=== PATIENT | female | born 1975 | race Caucasian/White ===

== ENCOUNTER → 2018-01-10 08:47 | Outpatient (CLI) | payer OTHER, SELFPAY ==
--- NOTE | 2018-01-10 | CI_ITS ---
Cerebrovascular Exam IMPRESSIONS 1. The bilateral internal carotid arteries reveal no evidence of plaque or stenosis. 2. The bilateral common and external carotid arteries reveal no significant stenosis. 3. The bilateral vertebral arteries are patent with normal antegrade flow. 4. The bilateral subclavian arteries reveal no evidence of significant stenosis. Carotid duplex study. Complete study and Doppler flow study including spectral analysis, color and bello scale imaging. Height: Height: 157.5cm. Height: 62in. Weight: Weight: 77.6kg. Weight: 170.6lb. Body mass index: BMI: 31.3kg/m^2. Body surface area: BSA: 1.87m^2. Location: Vascular laboratory. Patient status: Outpatient. Findings: Right subclavian: Normal. Left subclavian: Normal. Tables: Arterial flow: + +--------+--------+ Location V sys V ed + +--------+--------+ Right CCA - proximal 101cm/s 37.7cm/s + +--------+--------+ Right ECA 124cm/s 38.5cm/s + +--------+--------+ Right ICA - proximal 65.1cm/s 33.6cm/s + +--------+--------+ Right ICA - mid 77.7cm/s 44.1cm/s + +--------+--------+ Right ICA - distal 86cm/s 48cm/s + +--------+--------+ Right vertebral 43.1cm/s 17cm/s + +--------+--------+ Left CCA - proximal 105cm/s 40.5cm/s + +--------+--------+ Left CCA - distal 113cm/s 47.5cm/s + +--------+--------+ Left ECA 108cm/s 37cm/s + +--------+--------+ Left ICA - proximal 115cm/s 52.4cm/s + +--------+--------+ Left ICA - mid 97.1cm/s 48.2cm/s + +--------+--------+ Left ICA - distal 84.5cm/s 46.1cm/s + +--------+--------+ Left vertebral 54cm/s -26cm/s + +--------+--------+ Velocity ratios: + + + + Left, V sys Left, V ed + + + + Max ICA/dist CCA 1.02 1.1 + + + + (Report amended ) Electronically signed by: Pacheco Houston [id number]
== END ==
PROVIDERS: Family Provider Nurse Practitioner Family; PCP Nurse Practitioner Family; Visit Provider Nurse Practitioner Family
DX: I63.12 Cerebral infarction due to embolism of basilar artery (principal)
CPT/HCPCS: 93880

== ENCOUNTER → 2018-02-25 08:37 | Outpatient (CLI) | payer OTHER, SELFPAY ==
[2018-02-25 13:54] LABS: Basophils % 0.4 % (0.1-2.0); Eosinophils # 0.2 K/mm3 (0.0-0.4); Eosinophils % 2.7 % (0.1-12.0); Hematocrit 42.5 % (37.0-47.0); Hemoglobin 13.7 g/dL (12.2-16.2); Lymphocytes # 2.7 K/mm3 (0.7-4.5); Lymphocytes % 36.4 K/mm3 (10-50); Mean Corpuscular HGB Conc 32.3 g/dL (31.8-35.4); Mean Corpuscular Hemoglobin 30.5 pg (27.0-31.2); Mean Corpuscular Volume 94.6 fl (81-99); Mean Platelet Volume 7.1 fl (7.4-10.4); Monocytes # 0.2 K/mm3 (0.1-1.0); Monocytes % 3.1 % (1.7-9.3); Neutrophils # 4.2 K/mm3 (1.8-7.8); Neutrophils % 57.4 % (37.0-80.0); Platelet Count 410 K/mm3 (142-424); Red Blood Count 4.49 M/mm3 (4.20-5.40); Red Cell Distribution Width 13.3 % (11.5-17.5); White Blood Count 7.3 K/mm3 (4.8-10.8)
[2018-02-25 15:16] LABS: Alanine Aminotransferase 24 U/L (12-78); Albumin Level 3.4 gm/dL (3.4-5.0); Albumin/Globulin Ratio 0.9 (1.1-1.8); Alkaline Phosphatase 79 U/L (46-116); Anion Gap 13.9 mEq/L (5-15); Aspartate Amino Transferase 19 U/L (15-37); Bilirubin,Total 0.1 mg/dL (0.2-1.0); Blood Urea Nitrogen 10 mg/dL (7-18); Carbon Dioxide 26 mmol/L (21.0-32.0); Chloride 105 mmol/L (98-107); Creatinine,Serum 0.86 mg/dL (0.55-1.02); Estimated Glomerular Filt Rate 72 ml/min (>60); GFR (African American) 87 ML/MIN (>60); Globulin 3.8 gm/dl (1.3-3.2); Glucose 105 mg/dL (74-106); Potassium 3.9 mmoL/L (3.5-5.1); Sodium 141 mmol/L (136-145); Thyroid Stimulating Hormone 2.41 uIU/ml (0.358-3.740); Total Protein,Serum 7.2 gm/dL (6.4-8.2)
[2018-02-26 15:56] LABS: Folate 2.9 ng/mL (>3.0); Vitamin B12 388 pg/mL (232-1245)
== END ==
PROVIDERS: PCP Nurse Practitioner Family; Visit Provider Specialist
DX: R51 Headache (principal)
CPT/HCPCS: 36415; 80053; 82607; 82746; 84443; 85025

== ENCOUNTER → 2018-02-26 12:49 | Outpatient (CLI) | payer OTHER, SELFPAY ==
--- NOTE | 2018-02-26 12:50 | MR_ITS ---
MR head/brain wo/w con HISTORY: Severe headache, facial numbness on the right ITS.REASON: migraine,stroke like symptoms ORDERING PHYSICIAN: Jaida Aranda MD PATIENT AGE: 43 years Comparison: None TECHNIQUE: Standard multiplanar multiecho sequences are performed without and with gadolinium enhancement. FINDINGS: No midline shift, mass effect, intracranial hemorrhage, or hydrocephalus. No evidence of acute infarction. No enhancing lesions. There are scattered periventricular and subcortical T2 white matter hyperintensities. These are nonspecific. These may be related to migraine headache. Ischemic gliotic foci would be included in the differential diagnosis. Demyelinating process would be included in the differential diagnosis however this is not have characteristic appearance of that therapy. There are couple small T2 white matter hyperintensities in the carmen on the left. The hippocampal gyri are unremarkable. The temporal horns are symmetric. The cerebellopontine angles, cerebellum, and brainstem are unremarkable Unremarkable pituitary and optic chiasm. The cranial cervical junction and cerebellar tonsils are unremarkable. No sinus air-fluid level or mastoid effusion IMPRESSION: 1. Scattered periventricular and subcortical T2 white matter hyperintensities which could be due to sequela from migraines headache. Ischemic gliotic change from microvascular disease is also occluded although the patient is somewhat younger than the expected degree of these findings. Is there a long-standing hypertension or diabetes? Demyelinating process cannot totally be excluded. 2. No evidence of acute infarction
--- NOTE | 2018-02-26 12:50 | MR_ITS ---
MR angio head wo con HISTORY: Severe headache with right-sided facial numbness ITS.REASON: migraine,stroke like symptoms ORDERING PHYSICIAN: Jaida Aranda MD PATIENT AGE: 43 years Comparison: 12/19/2017 TECHNIQUE: 3-D [id number] images are obtained FINDINGS: No aneurysm, arteriovenous malformation, or major intracranial occlusive process is evident. Single shot MRV shows no obvious sinus thrombosis. IMPRESSION: Negative MRA of the brain
== END ==
PROVIDERS: Family Provider Nurse Practitioner Family; PCP Nurse Practitioner Family; Visit Provider Specialist
DX: G43.101 Migraine with aura, not intractable, with status migrainosus (principal); R29.898 Other symptoms and signs involving the musculoskeletal system; R29.90 Unspecified symptoms and signs involving the nervous system; R51 Headache
CPT/HCPCS: 70544; 70553; A9576

== ENCOUNTER → 2019-03-28 09:33 | Outpatient (CLI) | payer OTHER, SELFPAY ==
--- NOTE | 2019-03-28 10:14 | MM_ITS ---
PROCEDURE: MM DIG SCREENING MAMM BI W/CAD CLINICAL INDICATION: SCREENING History of breast cancer patient's paternal aunt. COMPARISON: None, this is baseline exam TECHNIQUE: Standard CC and MLO images were obtained. R2 CAD reviewed. FINDINGS: Prominent heterogenic fibroglandular densities are seen in the subareolar regions and central portions of both breasts. There is a possible asymmetric density central portion of the right breast only definitely seen on the MLO view. It is highlighted by CAD recommend the patient return for spot compression MLO view and 90 degree lateral view and rolled CC views. Ultrasound may be necessary as well. There is no other suspicious or asymmetric density and no suspicious microcalcifications. IMPRESSION: Moderate heterogenic breast density with asymmetric density right breast BI-RAD Category: 0 Need Additional Imaging Evaluation FOLLOW-UP: IMM Immediate Follow-up Recommended (A letter has been sent to the patient regarding results of the study.) Dictated by: Dr. Gaurav Cox MD 03/30/2019 10:[address] Gaurav Cox MD in [place] 03/30/2019 10:13
== END ==
PROVIDERS: PCP Physician Assistant; Visit Provider Nurse Practitioner
DX: Z12.31 Encounter for screening mammogram for malignant neoplasm of breast (principal)
CPT/HCPCS: 77067

== ENCOUNTER → 2019-05-06 14:11 | Outpatient (CLI) | payer OTHER, SELFPAY ==
--- NOTE | 2019-05-06 14:13 | MM_ITS ---
PROCEDURE: MM DIG MAMM DX UNILAT RT CAD CLINICAL INDICATION: ABNORMAL MAMM COMPARISON: MM DIG SCREENING MAMM BI W/CAD from 03/28/2019 TECHNIQUE: Compression MLO and CC views were obtained along with a 90 degree lateral view exaggerated cc view FINDINGS: There is a fairly well-defined nodular density outer quadrant right breast at approximately the 3 o'clock position I believe this corresponds to the asymmetric density in the central portion of the breast seen on the MLO view on the original study. This does not completely press out on the spot compression MLO view. Ultrasound performed the same date showed findings of ductal hyperplasia and a somewhat complex appearing cyst at 9 o'clock position with some internal debris there additional benign-appearing cyst in the right breast on the ultrasound exam. I believe the patient should return for 6 month follow-up right mammogram and ultrasound in view of the fact that the regional mammogram was a baseline study. IMPRESSION: Dense and heterogenic parenchymal pattern consistent with prominent fibrocystic change BI-RAD Category: 3 Probably Benign Finding Short Term Follow-up FOLLOW-UP: 6M 6Month Follow-up (A letter has been sent to the patient regarding results of the study.) Dictated by: Dr. Gaurav Cox MD 05/11/2019 13:[address] Gaurav Cox MD in [facility] 05/11/2019 13:29
--- NOTE | 2019-05-06 14:13 | US_ITS ---
PROCEDURE: US BREAST RT LIMITED CLINICAL INDICATION: ABNORMAL MAMM COMPARISON: No exams were available for comparison FINDINGS: There is a hypoechoic cystic-appearing lesion at the 3 o'clock position near the nipple measuring 0.6 x 0.6 by 0.9 cm. In addition there is hypoechoic lesion with somewhat irregular borders at the 9 o'clock position mid breast measuring 0.6 by 0.5 x 0.4 cm and I believe this corresponds in size and location to the asymmetric density seen on the original mammogram and on the additional views performed the same date this may show a small amount internal debris. Also there are findings of ductal hyperplasia in the subareolar region. There is a normal appearing node in the axilla. IMPRESSION: Hypoechoic but primarily benign-appearing lesions at the 9 o'clock and 3 o'clock position, the lesion at the 3 o'clock position was not definitely seen on the mammogram but likely is obscured by the prominent fibrocystic change in the subareolar region. As mentioned on the mammogram report recommend the patient return for six-month follow-up right mammogram and ultrasound to evaluate for interval stability of these likely benign but slightly complex cysts Dictated by: Dr. Gaurav Cox MD 05/11/2019 13:[address] Gaurav Cox MD in [facility] 05/11/2019 13:34
== END ==
PROVIDERS: PCP Nurse Practitioner Family; Visit Provider Nurse Practitioner Family
DX: R92.2 Inconclusive mammogram (principal)
CPT/HCPCS: 76642; 77065

== ENCOUNTER → 2019-11-17 13:34 | Outpatient (CLI) | payer OTHER, SELFPAY ==
[2019-11-17 13:43] LABS: Basophils % 0.4 % (0.1-2.0); Eosinophils # 0.2 K/mm3 (0.0-0.4); Hematocrit 42.8 % (37.0-47.0); Hemoglobin 13.9 g/dL (12.2-16.2); Lymphocytes # 2.8 K/mm3 (0.7-4.5); Lymphocytes % 37.2 % (10-50); Mean Corpuscular HGB Conc 32.6 g/dL (31.8-35.4); Mean Corpuscular Volume 95.2 fl (81-99); Mean Platelet Volume 8.2 fl (7.4-10.4); Monocytes # 0.4 K/mm3 (0.1-1.0); Monocytes % 5.2 % (1.7-9.3); Neutrophils # 4.1 K/mm3 (1.8-7.8); Neutrophils % 54.1 % (37.0-80.0); Platelet Count 406 K/mm3 (142-424); Red Blood Count 4.49 M/mm3 (4.20-5.40); Red Cell Distribution Width 14.6 % (11.5-17.5); White Blood Count 7.6 K/mm3 (4.8-10.8)
[2019-11-17 13:50] LABS: Chloride 107 mmol/L (98-107); Potassium 4.5 mmoL/L (3.5-5.1); Sodium 141 mmol/L (136-145)
[2019-11-17 13:53] LABS: Alanine Aminotransferase 39 U/L (12-78); Albumin Level 3.9 g/dl (3.5-5.0); Albumin/Globulin Ratio 1.3 (1.1-1.8); Alkaline Phosphatase 75 U/L (38-126); Anion Gap 11.5 mEq/L (5-15); Aspartate Amino Transferase 51 U/L (14-36); Bilirubin,Total 0.2 mg/dl (0.2-1.3); Blood Urea Nitrogen 12 mg/dl (7-17); Calcium 9.5 mg/dl (8.4-10.2); Carbon Dioxide 27 mmol/L (22.0-30.0); Cholesterol 193 mg/dl (140-200); Estimated Glomerular Filt Rate 78 ml/min (>60); GFR (African American) 94 ML/MIN (>60); Globulin 3.1 g/dL (1.3-3.2); Glucose 101 mg/dl (74-100); Triglycerides 128 mg/dl (30-150); VLDL Cholesterol 26 mg/dL (0-40)
[2019-11-17 13:54] LABS: Chol/HDL Ratio 4.9 (1-3.5); HDL Cholesterol 39 mg/dl (40-60)
[2019-11-17 14:04] LABS: Direct LDL Cholesterol 136.56 mg/dL (100-129)
[2019-11-17 14:11] LABS: T4 (Thyroxine) 9.1 ug/dl (5.53-11.0)
[2019-11-17 14:25] LABS: Thyroid Stimulating Hormone 3.33 uIU/mL (0.465-4.68)
[2019-11-23 13:51] LABS: 1,25 Dihydroxy Vitamin D 34 pg/mL (.); 1,25-Dihydroxy, Vitamin D-2 <10 pg/mL (.); 1,25-Dihydroxy, Vitamin D-3 33 pg/mL (.)
== END ==
PROVIDERS: Visit Provider Physician Assistant
DX: R53.83 Other fatigue (principal)
CPT/HCPCS: 80053; 80061; 82652; 84436; 84443; 85025

== ENCOUNTER → 2019-11-18 10:06 | Outpatient (CLI) | payer OTHER, SELFPAY ==
--- NOTE | 2019-11-18 10:08 | XR_ITS ---
PROCEDURE: XR KNEE LT 4V CLINICAL INDICATION: B knee pain COMPARISON: XR KNEE RT 4V from 11/18/2019 FINDINGS: No fracture or dislocation. No lytic or blastic change. There is normal mineralization. The joint spaces are well-preserved. No significant degenerative/arthritic changes. No erosive changes evident. Other findings:There may be a small suprapatellar effusion IMPRESSION: Possible small suprapatellar effusion negative Dictated by: Pacheco Houston MD 11/18/2019 15:34 Electronically signed by Pacheco Houston MD in [facility] 11/18/2019 15:34
--- NOTE | 2019-11-18 10:08 | XR_ITS ---
PROCEDURE: XR CERVICAL SPINE 4V CLINICAL INDICATION: Neck pain COMPARISON: No exams were available for comparison FINDINGS: There is straightening of the cervical lordosis. This is nonspecific and could be due to patient positioning or muscle spasm. There is 2 mm anterolisthesis of C2 on C3 with slight decrease in the disc space at C3-C4 and C4-C5 and C5-C6 which may be due to mild degenerative disc disease. The neural foramina are widely patent. Other findings:None. IMPRESSION: Straightening of cervical lordosis with mild degenerative disc disease Dictated by: Pacheco Houston MD 11/18/2019 15:37 Electronically signed by Pacheco Houston MD in [facility] 11/18/2019 15:37
--- NOTE | 2019-11-18 10:08 | XR_ITS ---
PROCEDURE: XR KNEE RT 4V CLINICAL INDICATION: B knee pain COMPARISON: No exams were available for comparison FINDINGS: No fracture or dislocation. No lytic or blastic change. There is normal mineralization. The joint spaces are well-preserved. No significant degenerative/arthritic changes. No erosive changes evident. Other findings:There may be a small suprapatellar effusion IMPRESSION: Possible small suprapatellar effusion otherwise negative Dictated by: Pacheco Houston MD 11/18/2019 15:33 Electronically signed by Pacheco [place] MD in [facility] 11/18/2019 15:33
== END ==
PROVIDERS: PCP Physician Assistant; Visit Provider Physician Assistant
DX: M25.562 Pain in left knee (principal); M25.561 Pain in right knee; M54.2 Cervicalgia
CPT/HCPCS: 72050; 73564

== ENCOUNTER 2020-12-09 12:27 | Emergency (ER) | payer OTHER, SELFPAY ==
[2020-12-09] VITALS (10 sets, daily range): BP systolic 104–143; BP diastolic 61–94; PULSE 57–92; RESP 14–16; TEMP 36.6–36.8; O2SAT 96–99; BMI 28.5
--- NOTE | 2020-12-09 12:32 | CT_ITS ---
PROCEDURE: CT HEAD/BRAIN WO CON CLINICAL INDICATION: headache, rt side numbness, rt side facial droop COMPARISON: CT HEADWO CT head/brain wo con from 12/19/2017 TECHNIQUE: Axial images obtained. All CT scans at the facility use one or more dose reduction, viz: automated exposure control, ma/kV adjustment per patient size (including targeted exams where dose is matched to indication, i.e. head), or iterative reconstruction technique. FINDINGS: No midline shift, mass effect, intracranial hemorrhage, hydrocephalus, or extra-axial fluid collection is evident. The calvarium has an unremarkable appearance. No mastoid effusion. No sinus air-fluid level. IMPRESSION: No acute intracranial finding Dictated by: Pacheco Houston MD 12/09/2020 12:58 Pacheco Houston MD in [facility] 12/09/2020 12:58
--- NOTE | 2020-12-09 12:32 | PC.NURSE ---
accucheck 131
[2020-12-09 12:49] LABS: Basophils % 0.6 % (0.1-2.0); Eosinophils # 0.2 K/mm3 (0.0-0.4); Eosinophils % 2.9 % (0.1-12.0); Hematocrit 43.3 % (37.0-47.0); Hemoglobin 13.6 g/dL (12.2-16.2); Lymphocytes # 2.6 K/mm3 (0.7-4.5); Lymphocytes % 40.4 % (10-50); Mean Corpuscular HGB Conc 31.5 g/dL (31.8-35.4); Mean Platelet Volume 6.8 fl (7.4-10.4); Monocytes # 0.4 K/mm3 (0.1-1.0); Monocytes % 6.6 % (1.7-9.3); Neutrophils # 3.2 K/mm3 (1.8-7.8); Neutrophils % 49.6 % (37.0-80.0); Platelet Count 353 K/mm3 (142-424); Red Blood Count 4.71 M/mm3 (4.20-5.40); Red Cell Distribution Width 14.4 % (11.5-17.5); White Blood Count 6.4 K/mm3 (4.8-10.8)
--- NOTE | 2020-12-09 12:51 | ECG_ITS ---
APPROVED REPORT Exam: Resting ECG HR:67 bpm ECG Measurements Heart Rate 67 AXES MS 138 P -3 QRSd 84 QRS 38 QT 384 T 17 QTc 405 Conclusion Normal sinus rhythm Normal ECG Electronically signed by : Sherif Salvador MD 12/10/2020 11:38:47
[2020-12-09 12:56] LABS: Chloride 108 mmol/L (98-107); Potassium 3.7 mmoL/L (3.5-5.1); Sodium 139 mmol/L (136-145)
[2020-12-09 12:58] LABS: Blood Urea Nitrogen 13 mg/dl (7-17); Creatinine Clearance Estimated 102 mL/min (50-200); Estimated Glomerular Filt Rate 78 ml/min (>60); GFR (African American) 94 ML/MIN (>60)
[2020-12-09 12:59] LABS: Alanine Aminotransferase 16 U/L (12-78); Albumin Level 4.3 g/dl (3.5-5.0); Albumin/Globulin Ratio 1.3 (1.1-1.8); Alkaline Phosphatase 75 U/L (38-126); Anion Gap 10.7 mEq/L (5-15); Aspartate Amino Transferase 31 U/L (14-36); Bilirubin,Total 0.3 mg/dl (0.2-1.3); Carbon Dioxide 24 mmol/L (22.0-30.0); Globulin 3.4 g/dL (1.3-3.2); Glucose 122 mg/dl (74-100); Total Protein,Serum 7.7 g/dl (6.3-8.2)
[2020-12-09 13:01] LABS: Prothrombin Time 10.8 seconds (10.1-12.5)
[2020-12-09 13:02] LABS: INR 0.91 (0.9-1.1)
[2020-12-09 13:43] LABS: Coronavirus 19, PCR Not Detected (NotDetected); Influenza A, PCR Not Detected (NotDetected); Influenza B, PCR Not Detected (NotDetected)
--- NOTE | 2020-12-09 15:34 | PC.NURSE ---
dr bradshaw returned call
--- NOTE | 2020-12-09 15:39 | MR_ITS ---
PROCEDURE: MR HEAD/BRAIN WO/W CON CLINICAL INDICATION: RULE OUT STROKE Headache with right-sided facial numbness and right body weakness COMPARISON: No exams were available for comparison TECHNIQUE: Routine multiplanar multi echo sequences are performed without and with gadolinium enhancement. FINDINGS: No midline shift mass effect intracranial hemorrhage or hydrocephalus is evident. No evidence of acute infarction. No restricted diffusion apparent. The cerebellopontine angles, cerebellum, brainstem and mid brain have an unremarkable appearance. There are numerous small T2 white matter hyperintensities present in the periventricular and subcortical region. These do not show restricted diffusion nor do they enhance. At least 2 of these T2 hyperintensities is oriented perpendicular to the long axis of the lateral ventricles 1 in the left parietal lobe and another in the right temporal parietal junction no enhancing lesions are evident. The pituitary, optic chiasm, corpus callosum, and craniocervical junction have an unremarkable appearance. The hippocampal gyri are symmetric in the temporal horns are symmetric. No mastoid effusion or sinus air-fluid level IMPRESSION: 1. No acute infarction. 2. Scattered T2 white matter hyperintensities. Some of these are oriented perpendicular to the long axis of the lateral ventricles which may be seen with multiple sclerosis.. The differential diagnosis would include ischemic gliotic foci from microvascular disease, migraine headache, or multiple sclerosis. Dictated by: Pacheco Houston MD 12/09/2020 17:21 Pacheco [place] MD in [facility] 12/09/2020 17:21
--- NOTE | 2020-12-09 15:40 | HMH.EDGENADL ---
ED Disposition Clinical Impression: Facial droop Headache Qualifiers: Headache type: unspecified Headache chronicity pattern: unspecified pattern Intractability: intractable Qualified Code(s): R51.9 - Headache, unspecified Disposition: Admitted as Observation Condition on Discharge: Good Referrals: Janeth Allen PA [Primary Care Provider] - Time of Disposition: 15:48 - Critical Care Critical Care Time: No Attestation: On 12/09/20, the high probability of a clinically significant, sudden or life threatening deterioration of the following system(s) required my full and direct attention, intervention and personal management. The time I documented below is in addition to time spent performing reported procedures but includes the following listed in this critical care notation. Medical Decision Making - Medical Records Medical records reviewed: Yes: I reviewed the patient's medical records. - Connor Inquiry Pt receiving controlled substance: No Vital Signs: 12/09/20 12:29 12/09/20 12:31 12/09/20 13:00 Temperature 97.8 F Temperature Source Oral Pulse Rate 75 63 Pulse Rate [Radial] 78 Respiratory Rate 16 16 16 Blood Pressure 105/69 L 104/64 L Blood Pressure [Right Arm] 143/87 H Blood Pressure Mean [Right Arm] 105 Blood Pressure Position Sitting Sitting Blood Pressure Position [Right Arm] Sitting 02 Sat by Pulse Oximetry 98 98 96 Oxygen Delivery Method Room Air Room Air 12/09/20 13:30 12/09/20 14:00 12/09/20 15:02 Temperature Temperature Source Pulse Rate 57 L 60 62 Pulse Rate [Radial] Respiratory Rate 16 Blood Pressure 111/61 117/74 125/84 Blood Pressure [Right Arm] Blood Pressure Mean [Right Arm] Blood Pressure Position Sitting Sitting Blood Pressure Position [Right Arm] 02 Sat by Pulse Oximetry Oxygen Delivery Method - Lab Data Lab results reviewed: Yes: I reviewed the patient's lab results. Lab Results 12/09/20 12:32: WBC 6.4, RBC 4.71, Hgb 13.6, Hct 43.3, MCV 92.0, MCH 29.0, MCHC 31.5 L, RDW 14.4, Plt Count 353, MPV 6.8 L, Neut % (Auto) 49.6, Lymph % (Auto) 40.4, Donley % (Auto) 6.6, Eos % (Auto) 2.9, Baso % (Auto) 0.6, Neut # (Auto) 3.2, Lymph # (Auto) 2.6, Donley # (Auto) 0.4, Eos # (Auto) 0.2, Baso # (Auto) 0.0 12/09/20 12:32: Sodium 139, Potassium 3.7, Chloride 108 H, Carbon Dioxide 24, Anion Gap 10.7, BUN 13, Creatinine 0.80, Estimated Creat Clear 102, Estimated GFR 78, Est GFR ( Amer) 94, Glucose 122 H, Calcium 9.0, Total Bilirubin 0.3, AST 31, ALT 16, Alkaline Phosphatase 75, Total Protein 7.7, Albumin 4.3, Globulin 3.4 H, Albumin/Globulin Ratio 1.3 12/09/20 12:32: PT 10.8, INR 0.91 12/09/20 13:40: SARS-CoV-2 (PCR) Not detected, Influenza A Untype (PCR) Not detected, Influenza Type B (PCR) Not detected Result diagrams: 12/09/20 12:32 12/09/20 12:32 Orders (Tests/Meds): ED MEDICATIONS Discontinued Medications Generic Name Dose Route Start Last Admin Trade Name Freq PRN Reason Stop Dose Admin Acetaminophen 1,000 mg 12/09/20 14:14 12/09/20 14:16 Acetaminophen 500mg Tab PO 12/09/20 14:15 1,000 mg ONCE ONE Administration Lactated Ringer's 1,000 mls @ 999 mls/hr 12/09/20 13:45 12/09/20 13:46 Lactated Ringer's 1000 Ml Bag IV 12/09/20 14:45 999 mls/hr .Q1H1M ANDRADE Administration Methylprednisolone Sodium Succinate 40 mg 12/09/20 13:35 Methylprednisolone Sod Succ 40mg Vial IV 12/09/20 13:36 ONCE ONE Methylprednisolone Sodium Succinate 40 mg 12/09/20 14:14 12/09/20 14:16 Methylprednisolone Sod Succ 40mg Vial IV 12/09/20 14:15 40 mg ONCE ONE Administration Ondansetron HCl 4 mg 12/09/20 14:23 12/09/20 14:25 Ondansetron 4mg/2ml Vial IV 12/09/20 14:24 4 mg ONCE ONE Administration Sumatriptan Succinate 6 mg 12/09/20 13:35 Sumatriptan 6mg/0.5ml Vial SQ 12/09/20 13:36 ONCE ONE - CT Data CT Scan: Head Time Received: 12:[address] Reviewed: Yes: I have re
--- NOTE | 2020-12-09 15:49 | PC.NURSE ---
pt off to MRI at this time
--- NOTE | 2020-12-09 17:15 | INFXCTL.NOTE ---
Addendum entered by Sherice Renner RN 12/09/20 17:36: DISCHARGED CANCELLED PER MD [facility] PT WILL BE DISCHARGED HOME Original Note: BED ASSIGNMENT REQUESTED, SECOND FLOOR MOVING PATIENTS AT THIS TIME, WILL CALL BACK WITH A BED WHEN AVAILABLE.
--- NOTE | 2020-12-09 17:17 | PC.NURSE ---
pt return from MRI at this time
--- NOTE | 2020-12-09 17:25 | PC.NURSE ---
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 Pt will board in ER until a bed is available
--- NOTE | 2020-12-09 17:26 | PC.NURSE ---
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 Lozano
--- NOTE | 2020-12-09 17:33 | PC.NURSE ---
KAYLIN MANZANO spoke with Dr. Lozano again at this time, states pt does not need to be admitted, will be d/c pt home. notified house player of the above.
== END 2020-12-09 18:41 | disposition home or self-care (01) ==
PROVIDERS: Emergency Provider Family Medicine; PCP Physician Assistant
DX: G43.909 Migraine, unspecified, not intractable, without status migrainosus (principal); Z11.52 Encounter for screening for COVID-19; F41.8 Other specified anxiety disorders; E11.9 Type 2 diabetes mellitus without complications; F17.210 Nicotine dependence, cigarettes, uncomplicated
CPT/HCPCS: 70450; 70553; 80053; 85025; 85610; 93005; 96365; 99284; A9576; J2405; U0003

== ENCOUNTER → 2021-01-28 08:59 | Outpatient (CLI) | payer OTHER, SELFPAY ==
[2021-01-28 10:06] LABS: Basophils # 0.1 K/mm3 (0-0.2); Basophils % 0.7 % (0.1-2.0); Eosinophils # 0.2 K/mm3 (0.0-0.4); Eosinophils % 2.3 % (0.1-12.0); Hemoglobin 14.2 g/dL (12.2-16.2); Lymphocytes # 2.1 K/mm3 (0.7-4.5); Mean Corpuscular HGB Conc 30.8 g/dL (31.8-35.4); Mean Corpuscular Hemoglobin 29.2 pg (27.0-31.2); Mean Corpuscular Volume 94.8 fl (81-99); Mean Platelet Volume 7.7 fl (7.4-10.4); Monocytes # 0.4 K/mm3 (0.1-1.0); Monocytes % 5.5 % (1.7-9.3); Neutrophils # 5.1 K/mm3 (1.8-7.8); Neutrophils % 64.6 % (37.0-80.0); Platelet Count 385 K/mm3 (142-424); Red Blood Count 4.86 M/mm3 (4.20-5.40); White Blood Count 7.8 K/mm3 (4.8-10.8)
[2021-01-28 10:27] LABS: Alanine Aminotransferase 27 U/L (12-78); Albumin Level 3.9 g/dl (3.5-5.0); Albumin/Globulin Ratio 1.1 (1.1-1.8); Alkaline Phosphatase 81 U/L (38-126); Anion Gap 14.2 mEq/L (5-15); Aspartate Amino Transferase 34 U/L (14-36); Blood Urea Nitrogen 8 mg/dl (7-17); Calcium 9.6 mg/dl (8.4-10.2); Carbon Dioxide 24 mmol/L (22.0-30.0); Chloride 107 mmol/L (98-107); Cholesterol 235 mg/dl (140-200); Estimated Glomerular Filt Rate 90 ml/min (>60); GFR (African American) 109 ML/MIN (>60); Globulin 3.6 g/dL (1.3-3.2); Glucose 96 mg/dl (74-100); HDL Cholesterol 39 mg/dl (40-60); Potassium 4.2 mmoL/L (3.5-5.1); Sodium 141 mmol/L (136-145); Total Protein,Serum 7.5 g/dl (6.3-8.2); Triglycerides 120 mg/dl (30-150); VLDL Cholesterol 24 mg/dL (0-40)
[2021-01-28 10:32] LABS: Erythrocyte Sedimentation Rate 8 mm/hr (0-20)
[2021-01-28 10:38] LABS: C-Reactive Protein 13.8 mg/L (0-4); Direct LDL Cholesterol 160.08 mg/dL (100-129)
[2021-01-28 10:39] LABS: Bilirubin,Total 0.1 mg/dl (0.2-1.3)
[2021-01-28 10:59] LABS: Thyroid Stimulating Hormone 2.98 uIU/mL (0.465-4.68)
[2021-01-28 11:34] LABS: Vitamin B12 307 pg/mL (239-931)
[2021-01-28 11:42] LABS: Folate 3.19 ng/mL
[2021-05-04 04:24] LABS: Antinuclear Antibodies (ANA) NEGATIVE
== END ==
PROVIDERS: Visit Provider Nurse Practitioner Family
DX: R51.9 Headache, unspecified (principal); M54.2 Cervicalgia; R90.89 Other abnormal findings on diagnostic imaging of central nervous system; Z72.0 Tobacco use
CPT/HCPCS: 36415; 80053; 80061; 82607; 82746; 83916; 84443; 85025; 85651; 86038; 86140

== ENCOUNTER 2021-01-28 09:16 | Day surgery (SDC) | payer OTHER, SELFPAY ==
[2021-01-28 09:19] VITALS: BP 122/80; PULSE 82; RESP 18; TEMP 36.8; O2SAT 98; BMI 27.3
[2021-01-28 09:51] VITALS: BP 111/62; PULSE 74; RESP 18; O2SAT 100
--- NOTE | 2021-01-28 10:02 | P.PCN_ITS ---
- Procedure Date: 01/28/21 Time: 10:02 Anesthesiologist:: Mario Lindsey MD Complications:: None Pre-procedure Diagnosis:: Headaches Post-procedure Diagnosis:: Same Indications for Procedure:: This patient is a pleasant 45-year-old white female who we are seeing as a referral from Dr. Browning for headaches. We are scheduled to do a diagnostic lumbar puncture today to rule out pseudotumor cerebri. Procedure Details:: Lumbar puncture under fluoroscopy Informed consent was obtained risk and benefits of the procedure were explained to the patient. Patient was taken the procedure room. She is placed in left lateral cubitus position. The skin and subtenons tissues were anesthetized using lidocaine. A 20-gauge spinal needle was inserted and advanced into the L4-5 interspace under fluoroscopic guidance. After obtaining CSF opening pressures were taken and found to be 18 cm of water. We placed approximately 18 mL of clear CSF into a total of 4 tubes. There is approximately 4 to 5 mL in each tube. Closing pressures were found to be 10 cm of water. The needle was removed Band-Aid was placed patient was taken recovery stable condition. Patien t tolerated procedure well with no complications. Plan and Disposition:: We will follow-up with this patient on a as needed basis. We will communicate these results to Dr. Aranda. We have counseled her as to the conservative treatments post dural puncture headache. If she does get a post dural puncture headache she is to call us in the pain clinic.
[2021-01-28 10:09] VITALS: BP 125/78; PULSE 83; RESP 20; O2SAT 99
[2021-01-28 10:48] LABS: Glucose,CSF 59 mg/dl (40-70)
[2021-01-28 11:05] LABS: Appearance,CSF Clear (Clear); Volume,CSF 14 mL
[2021-01-28 11:06] LABS: Red Blood Cell,CSF 0 cells/uL (0); White Blood Cell,CSF 1 cells/uL (0-5)
[2021-01-28 11:07] LABS: Appearance,CSF Clear (Clear); Red Blood Cell,CSF 0 cells/uL (0); Volume,CSF 14 mL; White Blood Cell,CSF 2 cells/uL (0-5)
[2021-01-28 11:29] LABS: Mononuclear WBCs,CSF 86 %; Polynuclear WBCs,CSF 0 %
[2021-01-28 11:30] LABS: Mononuclear WBCs,CSF 100 %; Polynuclear WBCs,CSF 0 %
[2021-01-31 21:23] LABS: VDRL, Cerebrospinal Fluid Non Reactive (Non Rea:<1:1)
[2021-02-01 16:22] LABS: Albumin 4.1 g/dL (3.8-4.8); Albumin, CSF 14 mg/dL (8-37); CSF IgG Index 0.6 (0.0-0.7); CSF/Serum Alb. Index 3 (0-8); IgG, Quant, CSF 2.8 mg/dL (0.0-6.7); IgG, Syn Rate, CSF -2.5 mg/day (-9.9 TO +3.3); Immunoglobulin G, Qn, Serum 1426 mg/dL (586-1602)
[2021-02-02 12:15] LABS: CSF Lyme (B. burgdorferi) PCR Negative (Negative)
[2021-05-04 04:24] LABS: Oligoclonal Banding NEGATIVE
== END 2021-01-28 10:11 | disposition home or self-care (01) ==
LOC: SC.PAINP 09:18
PROVIDERS: Specialist; PCP Physician Assistant; Visit Provider Anesthesiology
DX: G43.909 Migraine, unspecified, not intractable, without status migrainosus (principal); E11.9 Type 2 diabetes mellitus without complications; F32.9 Major depressive disorder, single episode, unspecified; F41.9 Anxiety disorder, unspecified; Z72.0 Tobacco use; K21.9 Gastro-esophageal reflux disease without esophagitis; Z88.6 Allergy status to analgesic agent
CPT/HCPCS: 62272; 82040; 82042; 82784; 82945; 83916; 84155; 86592; 87205; 87476; 89051

== ENCOUNTER → 2021-02-11 12:49 | Outpatient (CLI) | payer OTHER, SELFPAY ==
--- NOTE | 2021-02-11 13:06 | MR_ITS ---
PROCEDURE INFORMATION: Exam: MR Cervical Spine Without Contrast Exam date and time: 02/11/2021 1:06 PM Age: 46 years old Clinical indication: Neck pain; Additional info: Neck pain, right arm weakness. RT sided neck pain xyrs. Prior x-ray 11-18-19 TECHNIQUE: Imaging protocol: Multiplanar magnetic resonance images of the cervical spine without contrast. COMPARISON: CR XR CERVICAL SPINE 4V 11/18/2019 10:17 AM FINDINGS: Alignment grossly normal. Signal intensity within the bone marrow normal. Spinal cord normal. Visualized portions of the brain in the posterior fossa is also normal. Disc degeneration including decreased disc height, hydration and annular disk bulge/protrusion C3-C4, C4-C5, C5-C6 and C6-C7 Severe lingular tonsillar hypertrophy. Hypertrophy of the palatine tonsil suggested. Follow-up recommended. Correlate with CT neck. No marrow edema C2-C3: Central canal and neural foramina are widely patent. C3-C4: Disc and or osteophytic complex anteriorly mildly effaces the anterior aspect of the thecal sac. Mild narrowing of the neural foramina C4-C5: Broad-based central disc protrusion. Mild effacement of the anterior aspect of the thecal sac. Right neural foramina normal. Mild narrowing of the left neural foramina C5-C6: Disc and or osteophytic complex anteriorly mildly effaces the anterior aspect of the thecal sac. Right neural foramina normal. Mild narrowing of the left neural foramina C6-C7: Disc and or osteophytic complex anteriorly mildly effaces the anterior aspect of the thecal sac.Central canal is normal. Right neural foramina normal. Mild narrowing of the left neural foramina. C7-T1: Central canal and neural foramina are widely patent. IMPRESSION: Mild multilevel degenerative disc disease. Tonsillar hypertrophy. CT neck suggested.
--- NOTE | 2021-02-11 13:50 | XR_ITS ---
PROCEDURE: XR CERVICAL SPINE W FLEX/EXT CLINICAL INDICATION: Neck pain, brisk reflexes COMPARISON: CR XR CERVICAL SPINE 4V from 11/18/2019 FINDINGS: There is normal curvature and alignment. C1 through C7 appear intact and disc spaces are well maintained throughout. Oblique films show normal neural foramina bilaterally. The prevertebral soft tissues are normal and the odontoid is normal. Flexion and extension views show essentially normal range of motion. IMPRESSION: No acute findings. Dictated by: Dr. Gaurav Cox MD 02/11/2021 14:31 Dr. Gaurav Cox MD in [place] 02/11/2021 14:31
[2021-02-13 10:08] LABS: Homocyst(e)ine 34.1 umol/L (0.0-14.5)
[2021-02-17 02:08] LABS: Methylmalonic Acid 87 nmol/L (0-378)
== END ==
PROVIDERS: PCP Physician Assistant; Visit Provider Nurse Practitioner Family
DX: G43.909 Migraine, unspecified, not intractable, without status migrainosus (principal); M54.2 Cervicalgia; M54.10 Radiculopathy, site unspecified; R29.898 Other symptoms and signs involving the musculoskeletal system; R29.2 Abnormal reflex; E53.8 Deficiency of other specified B group vitamins
CPT/HCPCS: 36415; 72052; 72141; 76376; 82131; 83090

== ENCOUNTER 2021-02-18 17:29 | Emergency (ER) | payer OTHER, SELFPAY ==
[2021-02-18 17:45] VITALS: BP 143/86; PULSE 89; RESP 16; TEMP 36.9; O2SAT 99; BMI 28.3
[2021-02-18 18:07] LABS: Apearance,Urine Clear (Clear); Bilirubin,Urine Negative (Negative); Blood, Urine 3+ (Negative); Color,Urine Dark Yellow (Yellow); Glucose,Urine (UA) Negative (Negative); Ketones,Urine Negative (Negative); PH,Urine 5.5 (5.0-8.5); Protein,Urine 1+ (Negative); Urobilinogen,Urine 0.2 EU/dl (0.2)
[2021-02-18 18:08] LABS: UTC Leukocyte Esterase,Urine 2+ (Negative); UTC Nitrate,Urine Positive (Negative)
--- NOTE | 2021-02-18 18:14 | HMH.EDUTC ---
[facility] [place] Clinical Impression: Thrush, oral UTI (urinary tract infection) Qualifiers: Urinary tract infection type: site unspecified Hematuria presence: with hematuria Qualified Code(s): N39.0 - Urinary tract infection, site not specified Disposition: Home, Self-Care Condition on Discharge: Good Instructions: Urinary Tract Infection, DI for Urinary Tract Infection (UTI), DI for Thrush Additional Instructions: *Increase fluids. Water not Soda or Tea *Start antibiotic immediately and be sure to take as ordered for the FULL length of time although you should start to see improvement over the next 48 hours *Pyridium as needed Remember this medication will turn your urine [place]. This is normal but it will stain what ever it gets on *You should not use Pyridium for more than 48 hours. If so , follow up with your primary physician to review urine culture and ensure that antibiotic is adequate for infection *Be SURE to follow up anytime for new or worsening symptoms with your family doctor. AND in 48 hours for urine culture results with your family doctor, if you do not have a doctor then you may call back to the [facility] [[email or web address]] for urine culture results and further treatment. We do recommend that you choose and establish care with a Primary Care Physician. AND follow up with them in 10-14 days to repeat UA to ensure infection is resolved and blood no longer present *Be sure to let your PCP know that we sent urine cultures from the [facility] [[email or web address]] so they can follow up to ensure that you area the on the correct antibiotic Call your doctor office and make appointment for 48 hours (2 days from today) to follow up and get the results of your urine culture and further treatment Prescriptions: Sulfamethoxazole/Trimethoprim [Bactrim DS tablet] 1 each PO BID 7 Days #14 tab Transmission Status: Received by [facility] Nystatin [Nystatin Susp 500,000 Units/5mL Udc] 4 ml PO QID 10 Days #160 ml Transmission Status: Pending to [facility] Phenazopyridine HCl [Pyridium 200mg Tablet] 200 pow PO TID #6 tab Transmission Status: Received by [facility] Referrals: Janeth Allen PA [Primary Care Provider] - As needed Time of Disposition: 18:45 Medical Decision Making - Connor Inquiry Pt receiving controlled substance: No Connor was queried for this patient: No Vital Signs: 02/18/21 17:45 02/18/21 18:35 Temperature 98.4 F 98.4 F Temperature Source Oral Pulse Rate 89 Pulse Rate [Right Brachial] 89 Respiratory Rate 16 16 Blood Pressure 143/86 H Blood Pressure [Right Arm] 143/86 H Blood Pressure Mean [Right Arm] 105 Blood Pressure Source [Right Arm] Automatic Cuff Blood Pressure Position [Right Arm] Sitting 02 Sat by Pulse Oximetry 99 Oxygen Delivery Method Room Air - Lab Data Lab results reviewed: Yes: I reviewed the patient's lab results. Lab Results 02/18/21 17:57: Urine Color Dark yellow, Urine Appearance Clear, Urine pH 5.5, Ur Specific [place] 1.020, Urine Protein 1+, Urine Glucose (UA) Negative, Urine Ketones Negative, Urine Blood 3+, Urine Nitrate Positive A, Urine Bilirubin Negative, Urine Urobilinogen 0.2, Ur Leukocyte Esterase 2+ A Orders (Tests/Meds): ED MEDICATIONS Discontinued Medications Generic Name Dose Route Start Last Admin Trade Name Freq PRN Reason Stop Dose Admin Ceftriaxone Sodium 1 gm 02/18/21 18:31 02/18/21 18:35 Ceftriaxone 1gm Vial IM 02/18/21 18:32 1 gm ONCE ONE Administration Lidocaine HCl 0 ml 02/18/21 18:31 02/18/21 18:35 Lidocaine 1% 5ml Pf Vial IM 02/18/21 18:32 2.1 ml ONCE ONE Administration ORDERS Category Date Time Status Urine Culture Stat Micro 02/18/21 17:48 [place] [facility] [place] - General Stated complaint: Possible UTI Time Seen by Provider: 02/18/21 18:15 Mode of Arrival: Ambulatory Source of Information: Patient Limitations: No Limitations Description of Symptoms (Recalled from Triage Doc. by RN): PATIENT C/O LO
[2021-02-18 18:35] VITALS: BP 143/86; PULSE 89; RESP 16; TEMP 36.9; O2SAT 99
== END 2021-02-18 18:46 | disposition home or self-care (01) ==
PROVIDERS: Emergency Provider Nurse Practitioner; PCP Physician Assistant
DX: B37.0 Candidal stomatitis; N39.0 Urinary tract infection, site not specified
CPT/HCPCS: 81003; 87086; 87088; 87186; 96372; 99202; G0463

== ENCOUNTER → 2021-02-21 14:56 | Outpatient (CLI) | payer OTHER, SELFPAY | PROVIDERS: PCP Physician Assistant; Visit Provider Nurse Practitioner Family | DX: G47.33 Obstructive sleep apnea (adult) (pediatric) (principal); R06.83 Snoring; G43.009 Migraine without aura, not intractable, without status migrainosus; G47.00 Insomnia, unspecified | CPT/HCPCS: 95806 ==

== ENCOUNTER → 2021-03-16 16:12 | Outpatient (CLI) | payer OTHER, SELFPAY | PROVIDERS: Visit Provider Physician Assistant | DX: N39.0 Urinary tract infection, site not specified (principal); B96.20 Unspecified Escherichia coli [E. coli] as the cause of diseases classified elsewhere | CPT/HCPCS: 87086; 87088; 87186 ==

== ENCOUNTER 2021-09-13 10:15 | Emergency (ER) | payer OTHER, SELFPAY ==
[2021-09-13 11:07] VITALS: BP 140/89; PULSE 97; RESP 18; TEMP 36.9; O2SAT 99; BMI 29.5
[2021-09-13 11:12] LABS: Color,Urine Yellow (Yellow)
[2021-09-13 11:13] LABS: Apearance,Urine Cloudy (Clear); Bilirubin,Urine Negative (Negative); Blood, Urine 3+ (Negative); Glucose,Urine (UA) Negative (Negative); Ketones,Urine Negative (Negative); Protein,Urine Trace (Negative); Urobilinogen,Urine 0.2 EU/dl (0.2)
[2021-09-13 11:14] LABS: UTC Leukocyte Esterase,Urine 2+ (Negative); UTC Nitrate,Urine Negative (Negative)
--- NOTE | 2021-09-13 11:38 | HMH.EDUTC ---
[facility] [place] Clinical Impression: UTI (urinary tract infection) Qualifiers: Urinary tract infection type: site unspecified Hematuria presence: with hematuria Qualified Code(s): N39.0 - Urinary tract infection, site not specified Disposition: Home, Self-Care Condition on Discharge: Good Instructions: Nocturnal Leg Cramps, Urinary Tract Infection, DI for Urinary Tract Infection (UTI) Additional Instructions: Drink plenty of fluids. Take tylenol or ibuprofen for pain or fever. Take the medications as directed. Follow up with your regular doctor. GO TO THE ER FOR ANY WORSENING SYMPTOMS The pyridium will make your urine turn orange, this is an expected side effect. It will stain your clothes if it comes into contact with them. We will culture the urine. That will tell what bacteria is causing your infection and which antibiotics will treat it best. Sometimes the first antibiotic we prescribe turns out to not work against different bacteria. So, make sure you follow up within 3 days if you are not getting better. Prescriptions: Sulfamethoxazole/Trimethoprim [Bactrim DS tablet] 1 each PO BID 7 Days #14 tab Transmission Status: Received by [facility] Phenazopyridine HCl [Pyridium 200mg Tablet] 200 pow PO TID #6 tab Transmission Status: Received by [facility] Referrals: Janeth Allen PA [Primary Care Provider] - Forms: Work/School Release Time of Disposition: 12:02 Medical Decision Making - Medical Records Medical records reviewed: No: I reviewed the patient's medical records. - Connor Inquiry Pt receiving controlled substance: No Vital Signs: 09/13/21 11:07 09/13/21 12:04 Temperature 98.5 F 98.5 F Temperature Source Oral Pulse Rate 97 H Pulse Rate [Radial] 97 H Respiratory Rate 18 18 Blood Pressure 140/89 Blood Pressure [Right Arm] 140/89 Blood Pressure Mean [Right Arm] 106 02 Sat by Pulse Oximetry 99 - Lab Data Lab results reviewed: Yes: I reviewed the patient's lab results. Lab Results 09/13/21 11:03: Urine Color Yellow, Urine Appearance Cloudy, Urine pH 6.0, Ur Specific [place] 1.010, Urine Protein Trace, Urine Glucose (UA) Negative, Urine Ketones Negative, Urine Blood 3+, Urine Nitrate Negative, Urine Bilirubin Negative, Urine Urobilinogen 0.2, Ur Leukocyte Esterase 2+ A Orders (Tests/Meds): ORDERS Category Date Time Status Urine Culture Stat Micro 09/13/21 11:04 Results [facility] [place] - General Stated complaint: possible kidney infection Time Seen by Provider: 09/13/21 11:38 Mode of Arrival: Ambulatory Source of Information: Patient Limitations: No Limitations Description of Symptoms (Recalled from Triage Doc. by RN): pt c/o muscle spasms in top of thighs. and she also thinks she has a kidney infection HEENT Symptoms (Recalled from RN notes): No Resp Symptoms (Recalled from RN notes): No Skin Symptoms (Recalled from RN notes): No MS Symptoms (Recalled from RN notes): Yes Functional Status (Recalled from RN notes): wnl - History of Present Illness Provider Complaint: She states that she has had low back pain, upper thigh pain and burning with urination for the past 2 days. - Related Data Home Medications Medication Instructions Recorded Confirmed buprenorphine 8 mg-naloxone 2 mg 1 tab SUBLINGUAL DAILY tab 03/16/21 08/29/21 sublingual tablet Previous Rx's Medication Instructions Recorded cyanocobalamin (vitamin B-12) 1,000 mcg SQ DIRECTED #30 ml 06/22/21 1,000 mcg/mL injection solution amitriptyline 10 mg tablet 20 mg PO HS #60 tab 08/29/21 atorvastatin 10 mg tablet 10 mg PO QHS #90 tab 08/29/21 cariprazine 1.5 mg capsule 1.5 mg PO DAILY #30 cap 08/29/21 cyclobenzaprine 10 mg tablet 10 mg PO TID PRN #30 tab 08/29/21 gabapentin 400 mg capsule 400 mg PO TID #90 cap 08/29/21 methylprednisolone 4 mg tablets in 4 mg PO PER PKG DIR 6 Days #21 tab 08/29/21 a dose pack omeprazole 40 mg capsule,delayed 40 mg PO D
[2021-09-13 12:04] VITALS: BP 140/89; PULSE 97; RESP 18; TEMP 36.9
== END 2021-09-13 12:08 | disposition home or self-care (01) ==
PROVIDERS: Emergency Provider Nurse Practitioner Family; PCP Physician Assistant
DX: N39.0 Urinary tract infection, site not specified (principal); M62.838 Other muscle spasm; K21.9 Gastro-esophageal reflux disease without esophagitis; E78.5 Hyperlipidemia, unspecified; M50.20 Other cervical disc displacement, unspecified cervical region; M54.50 Low back pain, unspecified; M54.2 Cervicalgia; G89.29 Other chronic pain; G47.00 Insomnia, unspecified; E53.8 Deficiency of other specified B group vitamins; G43.909 Migraine, unspecified, not intractable, without status migrainosus; F32.A Depression, unspecified; F41.9 Anxiety disorder, unspecified; F17.210 Nicotine dependence, cigarettes, uncomplicated; Z79.52 Long term (current) use of systemic steroids; Z79.899 Other long term (current) drug therapy; Z88.5 Allergy status to narcotic agent
CPT/HCPCS: 81003; 87086; 87088; 87186; 99213; G0463

== ENCOUNTER 2022-08-15 13:33 | Emergency (ER) | payer OTHER, SELFPAY ==
--- NOTE | 2022-08-15 14:01 | PC.NURSE ---
admission called to room pt, was told by admission that pt was not seen in the lobby. pt left without being seen in ED.
[2022-08-15 14:03] VITALS: BP 0/0; PULSE 0; RESP 0; TEMP -17.7; TEMP 0
== END 2022-08-15 14:06 | disposition left against medical advice (07) ==
LOC: ER 14:05
PROVIDERS: Emergency Provider Emergency Medicine; PCP Physician Assistant
DX: Z53.21 Procedure and treatment not carried out due to patient leaving prior to being seen by health care provider (principal)
CPT/HCPCS: 99211

== ENCOUNTER → 2022-08-17 20:29 | Outpatient (CLI) | payer OTHER, SELFPAY | PROVIDERS: PCP Physician Assistant; Visit Provider Physician Assistant | DX: K62.5 Hemorrhage of anus and rectum (principal); R53.83 Other fatigue ==

== ENCOUNTER → 2022-08-24 06:58 | Outpatient (CLI) | payer OTHER, SELFPAY ==
--- NOTE | 2022-08-24 06:59 | CT_ITS ---
FINAL REPORT TECHNIQUE: Axial images through the abdomen and pelvis were performed without contrast. This study was performed with techniques to keep radiation doses as low as reasonably achievable, (ALARA). Individualized dose reduction techniques using automated exposure control or adjustment of mA and/or kV according to the patient's size were employed. CLINICAL HISTORY: rectal bleeding FINDINGS: ABDOMEN: The lung bases are clear. The heart size is normal. There is fatty infiltration of the liver. The gallbladder is partially collapsed with mild wall thickening. The spleen is normal. No adrenal mass is identified. There is calcification in the lumen of the distal abdominal aorta of uncertain etiology, may be due to partially calcified plaque or focal dissection. There is no significant free fluid or adenopathy. There is no nephrolithiasis. There is no hydronephrosis. There is mild vascular calcification. PELVIS: The appendix is unremarkable. The urinary bladder is unremarkable. There is no significant free fluid or adenopathy. IMPRESSION: Abnormal appearance of the abdominal aorta, may be due to partially calcified plaque or focal dissection. Recommend CTA of the abdomen. Reviewed, Interpreted and Dictated by Chao Womack III, MD Transcribed by Camryn Fairbanks Authenticated and . [facility]
== END ==
PROVIDERS: PCP Physician Assistant; Visit Provider Physician Assistant
DX: K62.5 Hemorrhage of anus and rectum (principal)
CPT/HCPCS: 74176

== ENCOUNTER → 2022-08-29 12:11 | Outpatient (CLI) | payer OTHER, SELFPAY ==
[2022-08-17 18:41] LABS: Basophils % 0.2 % (0.1-2.0); Eosinophils # 0.2 K/mm3 (0.0-0.4); Hematocrit 49.8 % (37.0-47.0); Lymphocytes # 2.1 K/mm3 (0.7-4.5); Lymphocytes % 28.7 % (10-50); Mean Corpuscular HGB Conc 32.1 g/dL (31.8-35.4); Mean Corpuscular Hemoglobin 28.8 pg (27.0-31.2); Mean Corpuscular Volume 89.6 fl (81-99); Mean Platelet Volume 8.7 fl (7.4-10.4); Monocytes # 0.5 K/mm3 (0.1-1.0); Monocytes % 6.7 % (1.7-9.3); Neutrophils # 4.7 K/mm3 (1.8-7.8); Neutrophils % 62.5 % (37.0-80.0); Platelet Count 369 K/mm3 (142-424); Red Blood Count 5.55 M/mm3 (4.20-5.40); Red Cell Distribution Width 14.7 % (11.5-17.5); White Blood Count 7.4 K/mm3 (4.8-10.8)
[2022-08-17 19:14] LABS: Alanine Aminotransferase 23 U/L (12-78); Albumin Level 4.5 g/dl (3.5-5.0); Albumin/Globulin Ratio 1.3 (1.1-1.8); Alkaline Phosphatase 93 U/L (38-126); Anion Gap 11.5 mEq/L (5-15); Aspartate Amino Transferase 24 U/L (14-36); Bilirubin,Total 0.4 mg/dl (0.2-1.3); Blood Urea Nitrogen 10 mg/dl (7-17); Calcium 9.5 mg/dl (8.4-10.2); Carbon Dioxide 22 mmol/L (22.0-30.0); Chloride 109 mmol/L (98-107); Chol/HDL Ratio 5.4 (1-3.5); Cholesterol 211 mg/dl (140-200); Estimated Glomerular Filt Rate 90 ml/min (>60); GFR (African American) 109 ML/MIN (>60); Globulin 3.5 g/dL (1.3-3.2); Glucose 98 mg/dl (74-100); HDL Cholesterol 39 mg/dl (40-60); Potassium 3.5 mmoL/L (3.5-5.1); Sodium 139 mmol/L (136-145); Triglycerides 181 mg/dl (30-150); VLDL Cholesterol 36 mg/dL (0-40)
[2022-08-17 19:32] LABS: Free T4 (Free Thyroxine) 1.14 ng/dl (0.78-2.19)
[2022-08-17 19:35] LABS: 25-OH Vitamin D, Total 19.4 ng/mL (30-100)
[2022-08-17 19:43] LABS: Thyroid Stimulating Hormone 2.56 uIU/mL (0.465-4.68)
== END ==
PROVIDERS: PCP Physician Assistant; Visit Provider Physician Assistant
DX: K62.5 Hemorrhage of anus and rectum (principal); R53.83 Other fatigue; K59.00 Constipation, unspecified; E03.9 Hypothyroidism, unspecified; E55.9 Vitamin D deficiency, unspecified
CPT/HCPCS: 80053; 80061; 82306; 84439; 84443; 85025

== ENCOUNTER 2022-09-13 09:55 | Day surgery (SDC) | payer OTHER, SELFPAY ==
[2022-09-07 10:34] VITALS: BMI 28.5
[2022-09-13 10:39] VITALS: BP 128/83; PULSE 83; RESP 18; TEMP 36.1; O2SAT 98
[2022-09-13 10:41] LABS: Urine Pregnancy, HCG Qual. Negative (Negative)
--- NOTE | 2022-09-13 10:52 | P.PN_ITS ---
[facility] Disclaimer: The information contained in this section may have been updated after the patient was seen, as this information can be updated by other users. Medical History Abnormal brain MRI Anxiety and depression Atypical migraine B12 deficiency Chronic neck pain Depression Elevated homocysteine Frequent headaches Gastroesophageal reflux disease H/O atypical migraine Hyperlipidemia Insomnia Knee pain Migraine Neck pain Protrusion of cervical intervertebral disc Radiculopathy affecting upper extremity Surgical History H/O myringotomy H/O tubal ligation Family History Other Family history of myocardial infarction Social History Smoking Status: Current every day smoker tobacco type: cigarettes packs per day: 1 pack-years: 15 alcohol intake: never substance use type: 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 current occupational status: unemployed Travel in the last 8 weeks: None household members: spouse and children housing: house lives independently: No education level: college service: No current occupational exposures/hazards: No caffeine: Yes special anu needs: No agree to transfusion: No do you feel safe at home: Yes victim of physical abuse: No victim of emotional abuse: No victim of sexual abuse: No would you like helpful sources: No [facility] Anesthesia Checklist Patient Identification Patient Identification: Arm Band and Verbal (Name & ) Structural Data Admitted From: Home Planned Operative Procedure/s: Colonoscopy Consent for Planned Operative Procedure(s) Verified: Yes NPO Status Verified Time NPO: 00:00 Additional verifications Anesthesia Reactions: No Hx Blood Transfusions: No Blood Transfusion Reaction: No Airway Assessment C-Spine Mobility Assessed: Yes TMJ Mobility Assessed: Yes Dentition: Edentulous Neurological Assessment Level of Consciousness: Awake Hx Seizures: No Numbness or tingling in extremities: No Anesthesia Plan Anesthesia Risk discussed: Yes Anesthesia Plan: Verified ASA Class: II Anesthesia Type: MAC
[2022-09-13 11:48] VITALS: O2SAT 97
--- NOTE | 2022-09-13 12:03 | HMH.SCOPE ---
Procedure: Date: 09/13/22 Patient Date of :: 1975 Procedure Performed:: Colonoscopy Indications:: The patient is a 47 year old who presents for screening colonoscopy. The patient has had intermittent bright red blood per rectum Performing Provider:: Orlin Godwin MD Referring Provider:: Janeth Allen APRN Sedation:: See RN records Procedure:: After placing the patient in the left lateral decubitus position, the colonoscopy was gently inserted into the rectum and under direct visualization advanced to the cecum which was identified by transillumination in the right lower quadrant, identification of the ileocecal valve, appendiceal orifice, and cecal strap. Color, texture, mucosa, and anatomy of the colon were carefully examined with the scope. Findings:: Anal canal: normal Rectum: hemorrhoids Sigmoid colon: normal without polyps or inflammatory changes Descending colon: normal without polyps or inflammatory changes Splenic flexure: normal Transverse colon: normal without polyps or inflammatory changes Hepatic flexure: normal Ascending colon: fair preparation. Erythematous and edematous mucosa within proximal ascending colon. Biopsies obtained Cecum: fair preparation Terminal ileum: not visualized Impression: Focal area of erythematous and edematous appearing mucosa of ascending colon Recommendations:: Await pathology results Anusol HC suppository x 1 week Stool softeners as needed Repeat colonoscopy in 5 years or sooner if indicated Complications:: None Estimated blood obtained (mL): 0
[2022-09-13 12:04] VITALS: BP 106/56; PULSE 75; RESP 18; TEMP 36.1; O2SAT 99
[2022-09-13 12:14] VITALS: BP 122/83; PULSE 83; RESP 17; O2SAT 100
[2022-09-13 12:24] VITALS: BP 105/80; PULSE 77; RESP 16; O2SAT 98
[2022-09-13 12:34] VITALS: BP 111/73; PULSE 73; RESP 16; O2SAT 100
== END 2022-09-13 12:34 | disposition home or self-care (01) ==
PROVIDERS: PCP Physician Assistant; Visit Provider Internal Medicine
PROC: 0DJD8ZZ Inspection of Lower Intestinal Tract, Via Natural or Artificial Opening Endoscopic (ICD-10-PCS; CPT 45378; principal; 2022-09-13 11:30)
DX: K62.5 Hemorrhage of anus and rectum (principal); K52.9 Noninfective gastroenteritis and colitis, unspecified; K64.8 Other hemorrhoids
CPT/HCPCS: 45380; 81025

== ENCOUNTER 2024-01-17 11:55 | Emergency (ER) | payer OTHER, SELFPAY ==
[2024-01-17 11:56] VITALS: BP 143/95; PULSE 100; RESP 18; TEMP 36.7; O2SAT 99; BMI 31.5
--- NOTE | 2024-01-17 12:15 | PC.NURSE ---
DR OAKES AT BEDSIDE
--- NOTE | 2024-01-17 12:20 | XR_ITS ---
FINAL REPORT CLINICAL HISTORY: pain/swelling FINDINGS: Right foot Three views were obtained. There is no acute fracture or dislocation. The joint spaces appear normal. No soft tissue abnormality is identified. IMPRESSION: No acute process. Reviewed, Interpreted and Dictated by Chao Womack III, MD Transcribed by Camryn Fairbanks Authenticated and [facility]
--- NOTE | 2024-01-17 12:20 | XR_ITS ---
FINAL REPORT CLINICAL HISTORY: pain/swelling FINDINGS: Right ankle Three views were obtained. There is no acute fracture or dislocation. The joint spaces appear normal. No soft tissue abnormality is identified. IMPRESSION: No acute process. Reviewed, Interpreted and Dictated by Chao Womack III, MD Transcribed by Camryn Fairbanks Authenticated and [facility]
--- NOTE | 2024-01-17 12:20 | CA_ITS ---
FINAL REPORT TECHNIQUE: Color Doppler, duplex Doppler and compression sonography of the right lower extremity venous system was performed. CLINICAL HISTORY: pain in right Achilles x 2 months FINDINGS: There is no evidence of deep venous thrombosis from the level of the groin to the calf. The veins are patent and compressible. IMPRESSION: No evidence of deep venous thrombosis right lower extremity. Reviewed, Interpreted and Dictated by Chao Womack III, MD Transcribed by Camryn Fairbanks Authenticated and . [facility]
[2024-01-17 12:30] VITALS: BP 126/85; PULSE 90; RESP 16; O2SAT 97
--- NOTE | 2024-01-17 12:50 | HMH.EDGENADL ---
Discharge Plan Disposition Patient Disposition: Home, Self-Care Condition: Good Prescriptions Prescriptions: New sulfamethoxazole-trimethoprim [Bactrim DS] 800-160 mg tablet 1 tab PO BID 10 Days Qty: 20 0RF cephalexin 500 mg capsule 500 mg PO Q8H 10 Days Qty: 30 0RF No Action Ubrelvy 100 mg tablet 100 mg PO ONCE PRN (Reason: migraine headache) Qty: 10 5RF Rx Instructions: Take 1 tablet at onset of headache. May repeat after 2 hours if symptoms persist. Max dose 2 tablets in 24 hours. oxybutynin chloride 10 mg tablet extended release 24hr See Rx Instructions .ROUTE .COMPLEX Qty: 90 3RF Rx Instructions: TAKE 1 TABLET 1 TIME EACH DAY omeprazole 40 mg capsule,delayed release(DR/EC) See Rx Instructions .ROUTE .COMPLEX Qty: 180 3RF Dose Instruction: TAKE 1 CAPSULE 2 TIMES EACH DAY. DO NOT CRUSH, CHEW, DISSOLVE CUT OR BREAK. Rx Instructions: TAKE 1 CAPSULE 2 TIMES EACH DAY. DO NOT CRUSH, CHEW, DISSOLVE CUT OR BREAK. amitriptyline 10 mg tablet See Rx Instructions .ROUTE .COMPLEX Qty: 180 3RF Dose Instruction: TAKE 2 TABLETS 1 TIME EACH DAY AT BEDTIME FOR MIGRAINES Rx Instructions: TAKE 2 TABLETS 1 TIME EACH DAY AT BEDTIME FOR MIGRAINES atorvastatin 20 mg tablet 20 mg PO HS Qty: 90 3RF cholecalciferol (vitamin D3) 50 mcg (2,000 unit) capsule 50 mcg PO DAILY Qty: 90 3RF ergocalciferol (vitamin D2) 1,250 mcg (50,000 unit) capsule 1,250 mcg PO WEEKLY Qty: 14 3RF escitalopram oxalate [Lexapro] 20 mg tablet 20 mg PO QDAY 90 Days Qty: 90 3RF gabapentin 600 mg tablet 600 mg PO TID Qty: 90 2RF Referrals Follow up/Referrals: Janeth Allen PA [Primary Care Provider] - See instructions Activity Restrictions/Add. Instructions Additional Instructions/Restrictions: You were evaluated in the emergency department today. You were diagnosed with cellulitis or soft tissue infection. Please vegetable picker your prescriptions at the pharmacy and take them as prescribed. Take Tylenol and ibuprofen every 4-6 hours at home as needed for pain. Follow-up closely with your primary care provider. Return to the emergency department right away for new or worsening symptoms. Clinical Impressions Clinical Impression: Cellulitis of leg, right Stand Alone Forms Stand Alone Forms: Work/School Release Instructions Patient Instructions: DI for Cellulitis -- Adult Print Language Print Language: Turkish Discharge ED Provider: Odilia Amin General Adult HPI General Chief complaint: Extremity Problem,Nontraumatic Stated complaint: R Foot pain Time Seen by Provider: 01/17/24 12:15 Mode of Arrival: Ambulatory Source of Information: Patient Limitations: No Limitations Description of Symptoms (Recalled from ER Triage Doc. by RN): r foot and ankle swelling and pain History of Present Illness HPI narrative: This patient is a 48-year-old female who denies significant past medical history presenting to the emergency department for evaluation with concern for right ankle/foot redness, pain, and swelling. She notes she was seen by her primary care provider for this 2 days ago and was told to go get imaging, but she did not go because she did not have a ride. She has had no fevers, chills, chest pain, shortness of breath, or other concerns. No recent known traumatic injury. No numbness or tingling. She is still able to bear weight and has intact range of motion of her ankle. Related Data Previous Rx's ?Medication ?Instructions ?Recorded ubrogepant 100 mg tablet (Ubrelvy) 100 mg PO ONCE PRN migraine 10/25/21 headache #10 tabs amitriptyline 10 mg tablet See Rx Instructions .Route 11/06/23 .COMPLEX #180 tabs atorvastatin 20 mg tablet 20 mg PO HS Cholesterol #90 tabs 11/06/23 cholecalciferol (vitamin D3) 50 50 mcg PO DAILY Supplement #90 caps 11/06/23 mcg (2,000 unit) capsule ergocalciferol (vitamin D2) 1,250 1,250 mcg PO WEEKLY Supplement #14 11/06/23 mcg (50,000 unit) capsule caps escitalopram oxalate 20 mg tablet 20 mg PO QDAY 90 days #90 tabs 11/06/23 (Lexapro) gabapentin 600 mg tablet 600 mg PO TID #90 tabs 11/06/23 omeprazole 40 mg capsule,delayed See Rx Instructions .Route 11/06/23 release .COMPLEX #180 caps oxybutynin chloride 10 mg See Rx Instructions .Route 11/06/23 tablet,extended release 24 hr .COMPLEX bladder #90 tabs cephalexin 500 mg capsule 500 mg PO Q8H 10 days #30 caps 01/17/24 sulfamethoxazole 800 1 tab PO BID 10 days #20 tabs 01/17/24 mg-trimethoprim 160 mg tablet (Bactrim DS) Allergies Allergy/AdvReac Type Severity Reaction Status Date / Time codeine [CODEINE] Allergy Intermediate I-HIVES Verified 01/15/24 13:49 PFSH PFS Disclaimer: The information contained in this section may have been updated after the patient was seen, as this information can be updated by other users. Medical History H/O atypical migraine Chronic neck pain Depression Migraine B12 deficiency Atypical migraine Elevated homocysteine Hyperlipidemia Protrusion of cervical intervertebral disc Abnormal brain MRI Radiculopathy affecting upper extremity Gastroesophageal reflux disease Frequent headaches Insomnia Anxiety and depression Neck pain Knee pain Surgical History H/O tubal ligation H/O myringotomy Family History Other Family history of myocardial infarction Social History Smoking Status: Current every day smoker tobacco type: cigarettes packs per day: 1 alcohol intake: never substance use type: 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 current occupational status: unemployed Travel in the last 8 weeks: None household members: spouse and children housing: house lives independently: No education level: college service: No current occupational exposures/hazards: No caffeine: Yes special anu needs: No agree to transfusion: No do you feel safe at home: Yes victim of physical abuse: No victim of emotional abuse: No victim of sexual abuse: No would you like helpful sources: No ROS Obtained: Yes All systems reviewed & no additional complaints except as documented Physical Exam General General appearance: alert and in no apparent distress Head Head exam: atraumatic and normocephalic Eye Eye exam: Present normal appearance, PERRL and EOMI ENT ENT exam: Present normal exam, normal oropharynx, mucous membranes moist and normal external ear exam Neck Neck exam: Present normal inspection, full ROM and trachea midline; Absent tenderness Chest Chest inspection: Present normal inspection and symmetric chest wall rise; Absent tenderness Respiratory Respiratory exam: Present normal lung sounds bilaterally; Absent respiratory distress, wheezes, stridor or accessory muscle use Cardiovascular Cardiovascular exam: Present regular rate and normal rhythm Abdominal Exam Abdominal exam: Present soft; Absent distention, tenderness or guarding Extremities Exam Extremities exam: Present full ROM, tenderness, normal capillary refill, edema and other (R posterior leg redness/swelling, all compartments soft, neurovascularly intact distally, intact ROM of R ankle) Back Exam Back exam: Present normal inspection and full ROM; Absent tenderness Neurological Exam Neurological exam: Present alert, oriented X3, CN II-XII intact and normal gait; Absent motor sensory deficit Psychiatric Psychiatric exam: Present normal affect and normal mood Skin Skin exam: Present warm and dry Medical Decision Making Medical Records Medical records reviewed: Yes I reviewed the patient's medical records. Connor Inquiry Pt receiving controlled substance: No Vital Signs: 01/17/24 11:56 01/17/24 12:30 01/17/24 13:00 Temperature 98.1 F Temperature Source Oral Pulse Rate 90 87 Pulse Rate [Right] 100 H Respiratory Rate 18 16 20 Blood Pressure 126/85 137/94 H Blood Pressure [Right Arm] 143/95 H Blood Pressure Mean [Right Arm] 111 02 Sat by Pulse Oximetry 99 97 96 Oxygen Delivery Method Room Air Room Air Room Air 01/17/24 13:30 01/17/24 14:20 Temperature 98.7 F Temperature Source Pulse Rate 85 77 Pulse Rate [Right] Respiratory Rate 18 18 Blood Pressure 145/98 H 139/92 H Blood Pressure [Right Arm] Blood Pressure Mean [Right Arm] 02 Sat by Pulse Oximetry 95 Oxygen Delivery Method Room Air Lab Data Lab results reviewed: Yes I reviewed the patient's lab results. Lab Results 01/17/24 12:34: WBC 8.9, RBC 4.66, Hgb 13.8, Hct 44.5, MCV 95.6, MCH 29.5, MCHC 30.9 L, RDW 13.8, Plt Count 369, MPV 8.4, Neut % (Auto) 63.4, Lymph % (Auto) 29.9, [place] % (Auto) 4.3, Eos % (Auto) 1.7, Baso % (Auto) 0.7, Neut # (Auto) 5.7, Lymph # (Auto) 2.7, [place] # (Auto) 0.4, Eos # (Auto) 0.2, Baso # (Auto) 0.1, ESR 99 H, Sodium 139, Potassium 3.7, Chloride 107, Carbon Dioxide 30, Anion Gap 5.7, BUN 7, Creatinine 0.80, Estimated Creat Clear 103, Estimated GFR 77, Est GFR ( Amer) 93, Glucose 118 H, Calcium 9.3, Total Bilirubin 0.3, AST 41 H, ALT 40, Alkaline Phosphatase 68, C-Reactive Protein 32.7 H, Total Protein 7.5, Albumin 3.7, Globulin 3.8 H, Albumin/Globulin Ratio 1.0 L 01/17/24 12:34 01/17/24 12:34 Orders (Tests/Meds): ED MEDICATIONS Discontinued Medications Generic Name Dose Route Start Last Admin Trade Name Freq PRN Reason Stop Dose Admin Cephalexin HCl 500 mg 01/17/24 14:09 01/17/24 14:14 Cephalexin 500mg Capsule PO 01/17/24 14:10 500 mg ONCE ONE Administration Trimethoprim/Sulfamethoxazole 1 each 01/17/24 14:01/17/24 14:14 Sulfa/Trimethoprim 1 Tablet PO 01/17/24 14:10 1 each ONCE ONE Administration ORDERS Category Date Time Status Ankle XR -Right minimum 3 Views [XR ankle RT min 3V] Exams 01/17/24 12:20 Completed Stat Foot XR right minimum 3 views [XR foot RT min 3V] Stat Exams 01/17/24 12:20 Completed CRP [C-Reactive Protein] Stat Lab 01/17/24 12:34 Completed Complete Blood Count Auto Diff Stat Lab 01/17/24 12:34 Completed Comprehensive Metabolic Panel Stat Lab 01/17/24 12:34 Completed ESR [Erythrocyte Sedimentation Rate] Stat Lab 01/17/24 12:34 Completed CA venous doppler LE RT Stat Y 01/17/24 12:20 Completed Medical Decision Narrative: In summary, this patient is a 48-year-old female presenting to the Emergency Department for evaluation of atraumatic right posterior leg/ankle/foot pain and swelling. Differential diagnoses considered include but are not limited to DVT, cellulitis, tendinitis, septic arthritis, vasculitis. Ruling out the most morbid conditions drove assessment. On exam, the patient is well-appearing. She is able to bear weight and has intact range of motion of her ankle, so doubt septic arthritis at this time. Workup included CBC, CMP, ESR, CRP, DVT ultrasound, and x-rays of the right foot and ankle. I independently interpreted x-ray and ultrasound prior to the radiologist read and noted no obvious fracture and no blood clot. Please see their read for final interpretation. Labs were obtained that demonstrated mildly elevated inflammatory markers. Ultimately, I feel the patient likely has cellulitis. Again, doubt septic arthritis given her reassuring exam. Ultimately, I feel the patient is appropriate for discharge home with antibiotic therapy to treat cellulitis. She is given prescriptions for Keflex and Bactrim as well as instructions for close follow-up with primary care provider for recheck. She was discharged with very strict return precautions. Critical Care Critical Care Time Critical Care Time: No
[2024-01-17 12:51] LABS: Alanine Aminotransferase 40 U/L (12-78); Albumin Level 3.7 g/dl (3.5-5.0); Alkaline Phosphatase 68 U/L (38-126); Anion Gap 5.7 mEq/L (5-15); Aspartate Amino Transferase 41 U/L (14-36); Bilirubin,Total 0.3 mg/dl (0.2-1.3); Blood Urea Nitrogen 7 mg/dl (7-17); Calcium 9.3 mg/dl (8.4-10.2); Carbon Dioxide 30 mmol/L (22.0-30.0); Chloride 107 mmol/L (98-107); Creatinine Clearance Estimated 103 mL/min (50-200); Estimated Glomerular Filt Rate 77 ml/min (>60); GFR (African American) 93 ML/MIN (>60); Globulin 3.8 g/dL (1.3-3.2); Glucose 118 mg/dl (74-100); Potassium 3.7 mmoL/L (3.5-5.1); Sodium 139 mmol/L (136-145); Total Protein,Serum 7.5 g/dl (6.3-8.2)
[2024-01-17 12:56] LABS: C-Reactive Protein 32.7 mg/L (0-4)
[2024-01-17 13:00] VITALS: BP 137/94; PULSE 87; RESP 20; O2SAT 96
[2024-01-17 13:09] LABS: Basophils # 0.1 K/mm3 (0-0.2); Basophils % 0.7 % (0.1-2.0); Eosinophils # 0.2 K/mm3 (0.0-0.4); Eosinophils % 1.7 % (0.1-12.0); Hematocrit 44.5 % (37.0-47.0); Hemoglobin 13.8 g/dL (12.2-16.2); Lymphocytes # 2.7 K/mm3 (0.7-4.5); Lymphocytes % 29.9 % (10-50); Mean Corpuscular HGB Conc 30.9 g/dL (31.8-35.4); Mean Corpuscular Hemoglobin 29.5 pg (27.0-31.2); Mean Corpuscular Volume 95.6 fl (81-99); Mean Platelet Volume 8.4 fl (7.4-10.4); Monocytes # 0.4 K/mm3 (0.1-1.0); Monocytes % 4.3 % (1.7-9.3); Neutrophils # 5.7 K/mm3 (1.8-7.8); Neutrophils % 63.4 % (37.0-80.0); Platelet Count 369 K/mm3 (142-424); Red Blood Count 4.66 M/mm3 (4.20-5.40); Red Cell Distribution Width 13.8 % (11.5-17.5); White Blood Count 8.9 K/mm3 (4.8-10.8)
[2024-01-17 13:30] VITALS: BP 145/98; PULSE 85; RESP 18; O2SAT 95
[2024-01-17 14:04] LABS: Erythrocyte Sedimentation Rate 99 mm/hr (0-20)
[2024-01-17] MEDS: SULFA/TRIMETHOPRIM 1 TABLET 1 EACH PO (14:14)
[2024-01-17] MEDS: cephALEXin 500MG CAPSULE 500 MG PO (14:14)
[2024-01-17 14:20] VITALS: BP 139/92; PULSE 77; RESP 18; TEMP 37.1; O2SAT 99
--- NOTE | 2024-01-17 14:20 | PC.NURSE ---
DR OAKES AT BEDSIDE TO UPDATE PT AND FAMILY
== END 2024-01-17 14:22 | disposition home or self-care (01) ==
PROVIDERS: Emergency Provider Emergency Medicine; PCP Physician Assistant
DX: L03.115 Cellulitis of right lower limb (principal)
CPT/HCPCS: 73610; 73630; 80053; 85025; 85651; 86140; 93971; 99284